=== PATIENT | male | born 1960 | race Caucasian/White ===

== ENCOUNTER 2016-12-05 23:50 | Emergency (ER) | payer MEDICAID | END 2016-12-06 02:43 | disposition home or self-care (01) | LOC: ER 23:50 | DX: S06.0X0A Concussion without loss of consciousness, initial encounter (principal); R42 Dizziness and giddiness; I10 Essential (primary) hypertension; W18.39XA Other fall on same level, initial encounter; Y92.009 Unspecified place in unspecified non-institutional (private) residence as the place of occurrence of the external cause; F17.290 Nicotine dependence, other tobacco product, uncomplicated; Z79.899 Other long term (current) drug therapy | CPT/HCPCS: 36415; 70450; 71010; 80053; 82553; 83735; 84484; 85025; 85610; 85730; 93005 ==

== ENCOUNTER 2016-12-15 01:10 | Emergency (ER) | payer MEDICAID ==
[2016-12-15] MEDS ORDERED: ASPIRIN 81 MG CHEW TAB ONE (01:46)
== END 2016-12-15 02:55 | disposition left against medical advice (07) ==
LOC: ER 01:10
DX: R07.2 Precordial pain (principal); F20.9 Schizophrenia, unspecified; F41.1 Generalized anxiety disorder; J44.9 Chronic obstructive pulmonary disease, unspecified; I10 Essential (primary) hypertension; F17.290 Nicotine dependence, other tobacco product, uncomplicated; Z79.899 Other long term (current) drug therapy
CPT/HCPCS: 36415; 71010; 80053; 82550; 83735; 84484; 85025; 85610; 85730; 93005